=== PATIENT | female | born 1985 | race Caucasian/White ===

== ENCOUNTER 2020-08-06 20:38 | Outpatient (REF) | payer SELFPAY | END 2020-08-06 20:39 | disposition home or self-care (01) | LOC: NCHCN 20:38 | PROVIDERS: PCP Nurse Practitioner Family; Visit Provider Nurse Practitioner Family | DX: N89.8 Other specified noninflammatory disorders of vagina (principal) | CPT/HCPCS: 87480; 87510; 87660 ==

== ENCOUNTER 2020-08-14 11:16 | Emergency (ER) | payer SELFPAY ==
[2020-08-14 11:23] VITALS: BP 133/94; PULSE 85; RESP 18; TEMP 36.3; O2SAT 100
--- NOTE | 2020-08-14 11:25 | ED.GENADUL_ITS ---
Discharge Plan Disposition Patient Disposition: HOME Condition: Stable Discharge Details Clinical Impression: Bilateral knee pain, Foot pain, right Primary Care Provider: Abi Gibson ED Provider: Neli Blackmon Home Meds and New Rx's Prescriptions: Continued insulin aspart U-100 [Novolog U-100 Insulin aspart] 100 unit/mL Solution 20 unit SUBCUT TID RF: 0 metformin 1,000 mg Tablet 1,000 mg PO BID RF: 0 Discharge Instructions Instructions: Knee Pain (ED) Additional Instructions: Return to the emergency department with development of worsening pain, redness, swelling, inability to walk. Otherwise I would like you to follow-up with your primary care provider at your next scheduled appointment on the . In the meantime I would like you to treat your pain with 600 mg of ibuprofen which is 3 [id number]-[id number]-yryycak 200 mg tablets together at one time as well as 1 g of Tylenol which is 2 extra strength tablets. You will do this every 6 hours and not to exceed this dose as this is your maximum allowable dose in 24-hours. Discharge Data Discharge Date/Time-TO BE ENTERED AT DEPARTURE: 08/14/20 14:23 Medical Decision Making Patient is a 34-year-old female who presents with bilateral knee pain which began yesterday upon waking. She reports the pain is worse with full extension and better and slight flexion. She has had no trauma. She has not taken any medications to help with her pain. She also notes that the top of the right foot has a small area of discomfort as well. She has been able to ambulate without difficulty. She has never had any similar previous episodes. No underlying rheumatologic disorders. No other joints have been affected in the past. Denies history of gout. She does endorse that she was treated for sexually transmitted infection completing her last dose of medications yesterday. She presents today with a bottle of metronidazole and states that she was diagnosed with trichomonas and yeast infection. She is no longer having vaginal discharge and reports taking her medications as prescribed. She is now without fevers or chills. No nausea or vomiting. Has been able to eat and drink normally. Feels well otherwise. She was seen last week at the [facility] and now has a primary care appointment scheduled for the of this month at [facility]. Differential diagnosis includes but not limited to arthralgias, rheumatologic disorder, no signs to suggest trauma or infection. At this time patient exam is rather reassuring. I will obtain x-rays of both knees as well as her right foot. She will be given 600 milligrams of ibuprofen, 1 g of Tylenol and ice pack to apply to her knees. Her vital signs are reassuring. I considered the possibility of things such as disseminated gonococcal infection given her report of sexually transmitted infection however she was diagnosed trichomonas and this is less likely concerning. She does not appear to have redness, warmth, swelling. I do not think there is a drainable abscess and no concerns for gout at this time. Her x-rays have returned and are unremarkable. I have discussed this with her. She reports that she has had improvement of her pain after receiving the Tylenol, ibuprofen and ice. At this time I recommended she treat at home with combination of 600 mg ibuprofen with 1 g of Tylenol every 6 hours not to exceed this dosing as this is maximum dose in a 24-hour. She will continue to ice. If she has any significant worsening she will return here as needed. However if pain resolves and/or does not have any significant worsening she will simply discuss this with her primary care provider on follow-up appointment next week. All of the patient's questions were answered and she felt comfortable with the care plan discussed. DAMIAN Boyle is a 34-year-old female who presents with bilateral knee pain which began yesterday morning. She also reports pain in the top of her right foot. She denies trauma or any prior similar symptoms. General Date/Time Provider Initiated Documentation: 08/14/20 11:24 . Related Data Home Medications Medication Instructions Recorded Confirmed insulin aspart U-100 [Novolog 20 unit SUBCUT TID 08/14/20 08/14/20 U-100 Insulin aspart] metformin 1,000 mg PO BID 08/14/20 08/14/20 Allergies Allergy/AdvReac Type Severity Reaction Status Date / Time Penicillins Allergy Unverified 08/14/20 11:30 Review of Systems All systems reviewed & are unremarkable except as noted in HPI and below [facility] Social History Smoking/Tobacco Use Status: Current every day Tobacco Type: cigarettes Smoking risk assessment performed?: Yes Alcohol Intake: never Substance use type: does not use Do you feel safe at home: Yes Do you feel safe in your relationship?: Yes Exam Narrative Exam Narrative: CONSTITUTIONAL: Afebrile, well-appearing young adult female, sitting in stretcher, in no acute distress. SKIN: [place], warm and moist. No diaphoresis, pallor, cyanosis, icterus or edema. No lesions, hives, petechiae or ecchymoses. EYES: Pupils equal and round. EOMI voluntarily. Conjunctivae clear w/o erythema or injection. Sclera white. HENT: Head normocephalic, atraumatic. NECK: Trachea midline. Neck supple with full range of motion. No nuchal rigidity. RESPIRATORY: CTAB. No wheezes, rhonchi or rales. Breathing non-labored. CARDIOVASCULAR: RRR without murmur, rubs or gallops. S1/ S2 present. Radial pu lses 3+ bilaterally. Brisk capillary refill noted. MUSCULOSKELETAL: Bilateral knees appear normal without redness, swelling or warmth. She is minimally tender to palpation throughout. She is sitting in position with knees slightly flexed as this is the most comfortable position. She will however both actively and passively ranged to full flexion and extension with mild discomfort. She is able to ambulate without severe discomfort. She has a small area of redness on the top of the medial foot where it looks as if she has been rubbing this area. I do not appreciate underlying ecchymosis it is minimally tender to palpate and she can weight-bear on this foot without difficulty. There is no signs concerning for infection. Otherwise all other extremities appear atraumatic with no obvious deformities, cyanosis, clubbing, or edema and with FROM. NEURO: Cranial nerves II-XII grossly intact. No significant motor or sensory deficits appreciated in the upper or lower extremities. No obvious ataxia PSYCH: Appropriate mood and affect.
--- NOTE | 2020-08-14 11:45 | DI.RAD_ITS ---
EXAM: XR KNEE LT 3V AP,LAT,CHER CLINICAL HISTORY: knee pain. TECHNIQUE: 2D digital imaging was performed. COMPARISON: No exams were available for comparison FINDINGS: There is no evidence of fracture but there is subtle suggestion of an increased amount of joint fluid . Also mild increased density noted within the anterior intra-articular Hoffa fat pad. Mild degenerative changes in the medial compartment are noted despite lack of joint space loss on the weight-bearing view. No osseous lesions. No osteochondral defects evident. IMPRESSION: Some degenerative changes. Possible joint effusion. If clinically indicated follow-up MRI can be performed for added sensitivity and specificity. DATA REPOSITORY: RADIATION DOSE DELIVERED:
--- NOTE | 2020-08-14 11:45 | DI.RAD_ITS ---
EXAM: XR KNEE RT 3V AP,LAT,CHER CLINICAL HISTORY: knee pain. TECHNIQUE: 2D digital imaging was performed. COMPARISON: CR,XR XR KNEE LT 3V AP,LAT,CHER from 08/14/2020 FINDINGS: There is no evidence of fracture but there does appear to be a joint effusion in the knee There is some degenerative changes in the medial compartment noted, despite absence of height loss. IMPRESSION: Subtle medial compartment findings. Joint effusion. If clinically indicated follow-up MRI can be performed for added sensitivity and specificity. DATA REPOSITORY: RADIATION DOSE DELIVERED:
--- NOTE | 2020-08-14 11:45 | DI.RAD_ITS ---
EXAM: XR FOOT RT COMPLETE CLINICAL HISTORY: right foot pain. TECHNIQUE: 2D digital imaging was performed. COMPARISON: No exams were available for comparison FINDINGS: There is no evidence of acute fracture nor diastasis of the Lisfranc joint. However, there is a smal l calcific density along truly orientated within the Eugenia petty joint adjacent to the lateral cortical base of the great toe metatarsal, possibly related to prior injury. No other focal findings in the foot. No radiopaque foreign body. No osseous lesions. IMPRESSION: DATA REPOSITORY: RADIATION DOSE DELIVERED:
[2020-08-14] MEDS: Acetaminophen 500 MG TAB 1000 MG PO (12:15)
[2020-08-14] MEDS: Ibuprofen 600 MG TAB PO (12:15)
[2020-08-14 13:27] VITALS: BP 103/74; PULSE 67; RESP 18; TEMP 36.2; O2SAT 96
--- NOTE | 2020-08-14 13:33 | DI.VRAD_ITS ---
PROCEDURE INFORMATION: Exam: XR Right Knee Exam date and time: 08/14/2020 1:17 PM Age: 34 years old Clinical indication: Other: Pain TECHNIQUE: Imaging protocol: XR Right knee. Views: 3 views. COMPARISON: No relevant prior studies available. FINDINGS: Bones/joints: Normal. Soft tissues: Normal. IMPRESSION: No acute findings. Dictated and Authenticated by: Hari Cid MD. Ordering:JOS Quinteros MD
--- NOTE | 2020-08-14 13:34 | DI.VRAD_ITS ---
PROCEDURE INFORMATION: Exam: XR Right Foot Exam date and time: 08/14/2020 12:02 PM Age: 34 years old Clinical indication: Other: Pain, no trauma TECHNIQUE: Imaging protocol: XR Right foot. Views: 3 or more views. COMPARISON: No relevant prior studies available. FINDINGS: Bones/joints: Normal. Soft tissues: Normal. IMPRESSION: No acute findings. Dictated and Authenticated by: Hari Cid MD. Ordering:JOS Quinteros MD
== END 2020-08-14 14:23 | disposition home or self-care (01) ==
PROVIDERS: Emergency Provider Physician Assistant Medical; PCP Nurse Practitioner Family
DX: M25.561 Pain in right knee (principal); M25.562 Pain in left knee; M79.671 Pain in right foot
CPT/HCPCS: 73562; 81025; 99284; 73630; 99282

== ENCOUNTER 2022-07-25 14:22 | Emergency (ER) | payer SELFPAY ==
[2022-07-25 14:30] VITALS: BP 139/92; PULSE 74; RESP 18; TEMP 36.9; O2SAT 99
== END 2022-07-25 17:01 ==
PROVIDERS: PCP Nurse Practitioner Family
DX: Z53.21 Procedure and treatment not carried out due to patient leaving prior to being seen by health care provider (principal)

== ENCOUNTER 2023-10-17 00:03 | Emergency (ER) | payer SELFPAY ==
[2023-10-17 00:08] VITALS: BP 137/101; PULSE 75; RESP 14; TEMP 36.3; O2SAT 99
--- NOTE | 2023-10-17 00:18 | ED.GENADUL_ITS ---
Discharge Plan Disposition Patient Disposition: Home Condition: Good Discharge Details Clinical Impression: Acute ear pain Primary Care Provider: Rojelio Duval ED Provider: Paula España Home Meds and New Rx's Prescriptions: Continued insulin aspart U-100 [Novolog U-100 Insulin aspart] 100 unit/mL Solution 20 unit SUBCUT TID metformin 1,000 mg Tablet 1,000 mg PO BID Discharge Instructions Instructions: Earache (ED) Additional Instructions: Do not use cotton swabs in your ear. You can try over the counter ear drops and earwax removal/flushes- DeBrox is one brand. Tylenol & ibuprofen over the counter for pain; follow the directions on the bottle. Call your primary care doctor today to schedule an appointment to follow up on your visit here. Return to the emergency department for new or worsening symptoms including worsening pain, difficulty hearing, discharge from your ear, or if you have any other concerns. Discharge Data Discharge Date/Time-TO BE ENTERED AT DEPARTURE: 10/17/23 00:35 HPI General Mode of arrival: ambulatory . Date/Time Provider Initiated Documentation: 10/17/23 00:06 . Limitations to Documentation: no limitations . Information obtained by: patient . HPI Narrative: 37yo female with diabetes presenting with concern for cotton in ear. Was using q-tip in left ear, when she removed it the cotton tip was missing. Used a 2nd q-tip to try to remove any cotton in her ear, was unable. No change in hearing. Some stinging/burning in left ear canal, otherwise no ear pain. She was in her usual state of health before this with no fevers, rash, or other concerns. Related Data Home Medications Medication Instructions Recorded Confirmed insulin aspart U-100 100 unit/mL 20 unit subcut TID 08/14/20 10/17/23 subcutaneous solution (Novolog U-100 Insulin aspart) metformin 1,000 mg tablet 1,000 mg PO BID 08/14/20 10/17/23 Allergies Allergy/AdvReac Type Severity Reaction Status Date / Time Penicillins Allergy Unverified 07/25/22 14:35 General Stated Complaint: EarProblem JAYLA: 4 Review of Systems Narrative: see HPI Exam Narrative Exam Narrative: General: Alert, well appearing, well nourished, in no acute distress. Head: Normocephalic, atraumatic Neck: Trachea midline, ?Neck supple. ENT: ?MMM.? Right TM clear. Left ear canal with some erythema consistent with abrasion, wax present, no foreign body. Intact TM, clear. Cardiac: ?No cyanosis. Resp: No respiratory distress. Speaking in full sentences. . Abd: ?Nn-distended, Extremities: ?No deformities.? Neurologic: GCS 15. ? Moves all extremities freely against gravity Course Vital Signs Vital signs: Vital Signs Temperature 36.3 C L 10/17/23 00:08 Pulse 75 10/17/23 00:08 Respiratory Rate 14 10/17/23 00:08 Blood Pressure 137/101 H 10/17/23 00:08 Pulse Oximetry 99 10/17/23 00:08 Temperature 36.3 C L 10/17/23 00:08 Temperature Source Temporal Artery Scan 10/17/23 00:08 Pulse 75 10/17/23 00:08 Respiratory Rate 14 10/17/23 00:08 Respiratory Effort Normal 10/17/23 00:12 Blood Pressure 137/101 H 10/17/23 00:08 Blood Pressure Position Sitting 10/17/23 00:08 Pulse Oximetry 99 10/17/23 00:08 Oxygen Delivery Method Room Air 10/17/23 00:08 Oxygen Flow Rate 0 10/17/23 00:08 Pain Level 0 10/17/23 00:14 Medical Decision Making 37yo female with diabetes presenting with concern for cotton in ear. Was using q-tip in left ear, when she removed it the cotton tip was missing. Used a 2nd q-tip to try to remove any cotton in her ear, was unable. Vital signs reassuring on arrival, on exam some erythema in left ear canal consistent with abrasion, + ear wax. TM clear. Not otitis externa or otitis media. Ear wax removed with currette and ear canal thoroughly visualized, no foreign body. Advised avoiding cotton swabs in the future, alternate methods of ear wax removal. Discharged home; discharge instructions and return precautions were reviewed with patient who verbalized understanding. All questions were answered and she is in full agreement with the plan. Quality:SDOH Health Related Social Needs: No Data to Display PFSH All Active Problems (Updated 10/17/23 @ 00:20 by Paula España MD) Acute ear pain (Acute) Social History Smoking/Tobacco Use Status: Current every day Tobacco Type: cigarettes Smoking risk assessment performed?: Yes Alcohol Intake: never Substance use type: does not use Do you feel safe at home: Yes Do you feel safe in your relationship?: Yes
== END 2023-10-17 00:35 | disposition home or self-care (01) ==
LOC: ER 00:40
PROVIDERS: Emergency Provider Student in an Organized Health Care Education/Training Program; PCP Physician Assistant
DX: H92.02 Otalgia, left ear; E11.9 Type 2 diabetes mellitus without complications; Z79.4 Long term (current) use of insulin
CPT/HCPCS: 99282; 99283